=== PATIENT | male | born 1990 | race Caucasian/White ===

== ENCOUNTER 2025-01-22 17:57 | Emergency (ER) | payer BC, SELFPAY ==
[2025-01-22 18:03] VITALS: BP 133/92
[2025-01-22 18:24] LABS: Hematocrit 45.8 % (39.0-52.0); Hemoglobin 15.4 g/dL (13.0-18.0); Mean Corp Hgb Conc. 33.6 g/dL (33.0-37.0); Mean Corpuscular Volume 86.1 fL (80.0-94.0); Nucleated Red Blood Cells % 0 % (-); Platelet Count 268 10^3/uL (130-400); Red Cell Dist. Width 13.1 % (11.5-14.5)
[2025-01-22 18:42] LABS: ALT (SGPT) 23 U/L (0-50); AST (SGOT) 26 U/L (17-59); Albumin 4.4 g/dl (3.5-5.0); Alkaline Phosphatase 78 U/L (38-126); Blood Urea Nitrogen 14 mg/dl (9-20); Calcium 9.7 mg/dl (8.4-10.2); Carbon Dioxide 28 mmol/L (22-30); Chloride 104 mmol/L (98-107); Glucose 101 mg/dl (70-99); Potassium 4.3 mmol/L (3.5-5.1); Sodium 138 mmol/L (135-145); Total Protein 7.7 g/dl (6.3-8.2); eGFR > 60.00
[2025-01-22 20:48] LABS: Urine Character Clear (Clear)
[2025-01-22 21:31] VITALS: BP 118/82
--- NOTE | 2025-01-22 23:21 | ED.MUSCINJ ---
HPI-Injury
General
Chief Complaint: Musculo-Skeletal Complaint
Source: patient
Exam Limitations: none
Time Seen by Provider: 01/22/25 19:50
Nursing documentation reviewed up to this point in time: agreed with
History of Present Illness-Injury
Is this injury a work related problem?: No
Is pt an associate of [facility]/[place]?: No
Initial Injury comments:
Patient to the emergency department for evaluation of right middle back pain. He states symptoms started approximately 1 week ago. No known history of trauma. He does admit to lifting heavy boxes at work however. Pain does not radiate. He
denies any weakness in extremities, bowel or bladder issues. Pain is worse with movement. He denies any fever chills recent illness. Brought to the emergency department by spouse for evaluation.
Past History
Past History
ED Past Medical History: None
ED Past Surgical History: None
Social History
Tobacco: Smoker
Alcohol: None
Drug: None
Personal: Single
Living: with family
Review of Systems
Review of Systems
Allergies reviewed?: Yes
All Other Systems: ROS reviewed and negative except as documented in HPI and ROS
Constitutional: Reports no symptoms
EENT: Reports no symptoms
Respiratory: Reports no symptoms
Cardiac: Reports no symptoms
ABD/GI: Reports no symptoms
: Reports no symptoms
Musculoskeletal: Reports muscle pain (Pain to right middle back)
Skin: Reports no symptoms
Neurological: Reports no symptoms
Psychiatric: Reports no symptoms
Musculoskeletal Injury Exam
Musculoskeletal Injury Exam
Right Middle Back:
Pain with Movement?: Moderate
Tender to palpation?: Moderate
Soft tissue swelling?: None
External deformity and angulation?: None
Joint effusion?: None
Contusion?: None
Hematoma-local bleeding into tissue?: None
Strain- Sprain- Tear (Connective tissue injury)?: Moderate
Crepitus with movement?: No
Joint instability?: No
Malalignment/deformity?: No
Range of motion: Full
Distal skin color and temperature: normal-warm & good color
Capillary Refill: normal
Normal distal neurovascular exam?: Yes
Phy Exam
General Physical Exam
General Presentation: well appearing and mild distress
General age: appears stated age
General Skin: warm and dry
General Habitus: normal
General Mental: alert
Gastrointestinal Exam
Gastrointestinal Exam: non tender and soft
Musculoskeletal Exam
Musculoskeletal Exam: full ROM and neuro vasc intact
Skin Exam
Skin Exam: normal color, warm/dry and no rash
Psychiatric Exam
Psychiatric Exam: normal mood/affect
Injury Course
Orders/Labs/Results
Orders:
Orders
01/22/25 18:12
Complete Blood Count/With Diff Urgent
Comprehensive Metabolic Panel Urgent
01/22/25 19:58
CR Chest - 2 Views Urgent
Comment:
Reason For Exam: right pain
01/22/25 19:59
Thoracic Spine 3 Views CR [CR Thoracic Spine 3 Views] Urgent
Comment:
Reason For Exam: pain
01/22/25 20:42
Urinalysis Reflex To Culture Urgent
Date Specimen was Collected: 01/22/25
Time Specimen was Collected: 20:01
Abnormal Lab Results
01/22/25
18:12
MPV 10.7 H fL
(7.4-10.4)
Absolute Lymphs (auto) 3.5 H 10^3/uL
(1.2-3.4)
Glucose 101 H mg/dl
(70-99)
01/22/25 18:12
01/22/25 18:12
*Radiology
Radiology exam reviewed: radiology read reviewed
*Pulse Oximetry
SaO2: 96
Oxygen Mode of Delivery: Room air
Patient hypoxic: no
*Critical Care Note
Total Time (30-74mins, 75-104mins- exclusive of procedures): Not Applicable
ED Attending Note
-
Portions of this chart may have been created with voice recognition software.� Occasional wrong word or��sound alike� substitutions may have occurred due to the inherent limitations of voice recognition software.
Discharge Plan
Departure
Patient Disposition: Home (Routine Discharge)
Date of Disposition: 01/22/25
Time of Disposition: 21:24
Patient with high blood pressure during this ER visit?: No
Condition: Good
Covid-19: Not Applicable
Discharge Problem:
Back pain
Instructions: Ibuprofen, Using Cold for Pain, Musculoskeletal Pain
Prescriptions:
No Action
No Current Medications
penicillin V potassium 500 MG tablet
500 mg PO Q6 Qty: 40 0RF
hydrocodone-acetaminophen [Vicodin] 1 EACH tablet
1 tab PO Q4 PRN (Reason: pain) Qty: 10 0RF
Referrals:
Jenny Roberson MD [Family Provider] - Follow up in 2-3 days
Stand Alone Forms: Return to Work
Interventions
Interventions:
*Risk Screen - Suicide Last Done: 01/22/25 18:03
*General Assessment Last Done: 01/22/25 18:03
*Neglect/Abuse Screening Last Done: 01/22/25 18:03
*ED COVID-19 Vaccine History Last Done: 01/22/25 18:03
*ED Influenza Vaccine History Last Done: 01/22/25 18:03
[facility] Fall Risk Assessment Tool Last Done: 01/22/25 19:49
*Nursing Disposition Last Done: 01/22/25 21:32
ED-Musculoskeletal Assessment Last Done: 01/22/25 19:49
Discharge Date and Time
Discharge Date/Time: 01/22/25 21:32
Print Language: [id number]
== END 2025-01-22 21:32 | disposition home or self-care (01) ==
LOC: EMR 17:57
PROVIDERS: Nurse Practitioner; EMERGENCY PHYSICIAN Emergency Medicine; FAMILY PHYSICIAN Family Medicine
DX: M54.9 Dorsalgia, unspecified (principal); X50.0XXA Overexertion from strenuous movement or load, initial encounter; F17.200 Nicotine dependence, unspecified, uncomplicated
CPT/HCPCS: 99283; 71046; 72072; 80053; 81003; 85025